=== PATIENT | male | born 1990 | race Caucasian/White ===

== ENCOUNTER 2021-07-09 10:58 | Emergency (ER) | payer MEDICAID, SELFPAY ==
[2021-07-09 11:00] VITALS: BP 133/102; PULSE 128; RESP 18; TEMP 35.8; O2SAT 97; BMI 29.2
--- NOTE | 2021-07-09 11:15 | US_ITS ---
STUDY: SCROTUM ULTRASOUND REASON FOR EXAM: Male, 30 years old. Right testicle pain TECHNIQUE: Ultrasound evaluation of the scrotum was performed with color Doppler and static blackman-scale imaging. COMPARISON: None. FINDINGS: RIGHT TESTICLE INTRATESTICULAR: There is a normal size of the right testicle. The right testicle measures 3.8 cm x 2.9 cm x 3 cm. There is a heterogeneous echotexture. There is increased arterial and increased venous vascularity. There is a 1.9 cm x 1.7 cm heterogeneous solid mass in the medial inferior aspect of the right testicle. The differential diagnosis to consider should include abscess and neoplastic process. EXTRATESTICULAR: The epididymis is enlarged. The epididymis head measures 1.4 cm x 1.9 cm x 2 cm. There is normal vascularity of the epididymis. There is no demonstrated epididymal cystic structure. There is no demonstrated hydrocele. There is no demonstrated varicocele. There is no demonstrated extratesticular mass or cyst. LEFT TESTICLE INTRATESTICULAR: There is a normal size of the left testicle. The left testicle measures 4.1 cm x 2.7 cm x 2.2 cm. There is a homogenous echotexture. There is normal arterial and normal venous vascularity. There is no demonstrated left testicular mass or cyst. EXTRATESTICULAR: The epididymis is normal in size. The epididymis head measures 1.3 cm x 1.6 cm x 0.9 cm. There is normal vascularity of the epididymis. There is a well-defined cystic structure within the epididymis, without internal echoes, consistent with an epididymal cyst. This measures 1.1 cm x 1.1 cm x 0.7 There is no demonstrated hydrocele. There is no demonstrated varicocele. There is no demonstrated extratesticular mass or cyst. US/Testicular with Arterial Flow IMPRESSION: Findings suggestive of epididymitis on the right side with the heterogeneous solid mass in the medial aspect of the right testicle. The differential diagnosis to consider should include epididymal orchitis with possible abscess versus a neoplastic process of the right testicle. Electronically Signed: Douglas Pagan MD at 13:13 EST , Service support ,
--- NOTE | 2021-07-09 11:16 | EX.ED.GUMALE ---
HPI History of Present Illness Chief Complaint: Male Pain/Injury Detail of Chief Complaint: Right testicle pain x1 week Informant: patient Pain Current Severity: 03/11 Narrative Narrative: Patient presents to the emergency department complaint of pain in his right testicle that he said for about a week. Patient states initially the pain started suddenly about a week ago and he kept ice to the area because he thought he might be a hernia and eventually over the next 4 to 5 days his pain improved significantly. Patient started experiencing more discomfort yesterday. Patient complains of pain to the right lower abdomen as well. He denies fever. Has had not had any nausea or vomiting. He denies dysuria. He is never had discomfort like this before. He denies any trauma to the testicle. No history of kidney stones. Currently rates his pain a 6-8 out of 10. Prior similar symptoms: No PFSH PFS Medical History (Updated 07/09/21 @ 15:[address] Soraya Taylor, DO) History of deviated nasal septum Home Medications oxycodone-acetaminophen 1 tab PO Q6H PRN PRN 3 Days #12 tablet 07/09/21 [Rx Last Taken Unknown] sulfamethoxazole-trimethoprim 1 tab PO BID #20 tablet 07/09/21 [Rx Last Taken Unknown] Allergy/AdvReac Type Severity Reaction Status Date / Time No Known Allergies Allergy Verified 07/09/21 10:58 Social History Smoking Status: Current every day smoker tobacco type: cigarettes ROS ROS ED Constitutional Constitutional ED: Reports systems reviewed and no addt'l complaints, except as documented; Denies body ache(s), change in weight or chills Eyes Eyes: Denies acute decrease in peripheral vision, change in vision, double vision or loss of vision ENT ENT ED: Reports none; Denies ear pain, lip swelling, loss taste/smell, neck pain, otalgia or sore throat Cardiovascular Cardiovascular: Reports none; Denies abdominal pain, chest pain with activity, leg edema, lightheadedness, palpitations, rapid heart rate or syncope Respiratory/Chest Respiratory/Chest: Reports none; Denies change in mental status, dry cough, dyspnea, hemoptysis, shortness of breath at rest or shortness of breath with exertion Gastrointestinal Gastrointestinal: Reports none; Denies abdominal pain, change in stool character, diarrhea, hematemesis, hematochezia, melena, rectal bleeding or vomiting Genitourinary Genitourinary ED: Reports none and other Details: Right testicle pain ; Denies abdominal discomfort, anuria, dysuria, genital pain or polyuria Musculoskeletal Musculoskeletal: Reports none; Denies arthralgias, back pain, difficulty walking, extremity pain, muscle weakness or myalgias Integumentary Reports none; Denies abscess or rash Neurologic Neurologic: Reports none; Denies abnormal gait, confusion, focal weakness, frequent falls, headache(s), loss of vision, numbness, paresthesias, radicular pain, vertigo or weakness Psychiatric Psychiatric: Reports systems reviewed and no addt'l complaints, except as documented and none; Denies behavioral changes, confusion, difficulty concentrating, hallucinations, suicidal ideation, tactile hallucinations or visual hallucinations Endocrine Endocrinology: Denies none, cold intolerance, excessive sweating, fatigue or heat intolerance Hematologic/Lymphatic Hematologic/Lymphatic: Reports none; Denies anemia, easy bleeding or easy bruising Allergic/Immunologic Allergic/Immunologic ED: Denies as per HPI, none, lip swelling, mouth swelling, throat swelling, tongue swelling or hives EXAM Physical Exam Const Vital Signs: 07/09/21 11:00 Temperature 96.5 F L Temperature Source Temporal Pulse Rate 128 H Respiratory Rate 18 Blood Pressure 133/102 H Blood Pressure Mean 112 Pulse Ox 97 Oxygen Delivery Method Room Air Positive well nourished and well developed General Appearance ED: well developed and NAD HEENT Reports TM's clear and moist mucous membranes normocephalic and atraumatic; Negative for trauma or tenderness Tympanic Membrane ED: Yes TM's clear Eyes PERRL and EOMs intact bilaterally General Eye ED: Negative for pale conjunctiva or scleral icterus Neck no lymphadenopathy, supple and no JVD General: Negative for tenderness Chest Wall inspection of chest normal and palpation of chest normal Chest: Negative for tenderness Resp normal respiratory effort and clear to auscultation bilaterally Effort and Inspection: Negative for respiratory distress or pain with movement Auscultation: Negative for rhonchi, wheezes or diminished lung sounds Cardio regular rate, regular rhythm, S1 normal heart sound, S2 normal heart sound and no murmurs Peripheral Pulses: pulses 2+ throughout GI normal to inspection, nondistended, normoactive bowel sounds, soft to palpation, non-distended and no masses GI Narrative: Tenderness diffusely to the right lower quadrant with some guarding. No rebound or rigidity noted. No masses palpated. No obvious hernias noted. Narrative: Patient does have swelling to the right testicle and tenderness over the right epididymis. Normal lie of testicle and normal cremasteric reflex. Patient is circumcised and no external lesions noted and no drainage from the urethral meatus noted. Back/Spine no CVA tenderness and no thoracic nor lumbar tenderness Extremity normal to inspection General Extremety ED: Negative for edema General Extremity: Negative for edema Neuro oriented x3, CN's II-XII intact bilaterally, no sensory deficits noted and gait normal Sensorium / Orientation: awake, alert, oriented to person, oriented to place and oriented to time Motor Exam: strength 5/5 throughout and strength abnormal Psych mental status grossly normal Skin no rashes or lesions noted and no wounds MDM MDM MDM Narrative Medical decision making narrative: IV line established on arrival. Patient was medicated with morphine as well as Toradol and Zofran. Patient case was discussed with urology on-call Dr. Logan who recommended antibiotics and outpatient follow-up for concern about testicular mass versus epididymitis with possible abscess. Patient will be given a prescription for Bactrim as well as Percocet for pain. Patient advised to return if worsening pain, fever, vomiting, or condition should worsen anyway. Lab Data Attestation: I reviewed the patient's lab results. Labs: Laboratory Results - last 24 hr 07/09/21 07/09/21 07/09/21 11:57 12:05 12:05 WBC 23.0 H RBC 4.83 Hgb 14.5 Hct 43.0 MCV 89.0 MCH 30.0 MCHC 33.7 RDW Std Deviation 39.2 RDW Coeff of Ivana 12.0 Plt Count 387 MPV 10.3 Immature Gran % (Auto) 0.700 Neut % (Auto) 84.7 H Lymph % (Auto) 6.6 L [place] % (Auto) 7.6 Eos % (Auto) 0.1 Baso % (Auto) 0.3 Absolute Neuts (auto) 19.5 H Absolute Lymphs (auto) 1.51 Nucleated RBC % 0 Sodium 137 Potassium 3.9 Chloride 101 Carbon Dioxide 28.0 Anion Gap 8 BUN 13 Creatinine 1.12 Estim Creat Clear Calc 76.91 Est GFR (MDRD) Af Amer 98 Est GFR (MDRD) Non-Af 81 BUN/Creatinine Ratio 11.6 Glucose 108 H Calcium 9.5 Urine Color Yellow Urine Clarity Sl. Cloudy Urine pH 6.0 Ur Specific [place] 1.020 Urine Protein 30 H Urine Glucose (UA) Normal Urine Ketones 50 H Urine Occult Blood Negative Urine Nitrite Negative Urine Bilirubin Negative Urine Urobilinogen 1 H Ur Leukocyte Esterase 25 H Urine RBC 0 SEEN Urine WBC 0-5 SEEN Ur Squamous Epith Cells 0-5 SEEN Urine Bacteria 0 SEEN Urine Mucus 0 SEEN Radiography Diagnostic Testing: Clinical Impression(s) from Imaging Studies Testicular Ultrasound 07/09/21 11:15 IMPRESSION: Findings suggestive of epididymitis on the right side with the heterogeneous solid mass in the medial aspect of the right testicle. The differential diagnosis to consider should include epididymal orchitis with possible abscess versus a neoplastic process of the right testicle. Electronically Signed: Douglas Pagan MD at 13:13 EST , Service support , Abdomen/Pelvis CT 07/09/21 13:09 IMPRESSION: Heterogeneous appearance of the right testicle. This correlates with the recent ultrasound of the right testicle. Calcified appendicolith. Electronically Signed: Douglas Pagan MD at 14:12 EST , Service support , Discharge Plan Triage Chief Complaint: Male Pain/Injury ED Provider: Soraya Taylor Dx/Rx/DC Orders Clinical Impression: Acute epididymitis, Mass of right testicle Instructions: ED Epididymitis, ED Orchitis Prescriptions: New sulfamethoxazole-trimethoprim [sulfamethoxazole-trimethoprim] 1 TABLET tablet 1 tab PO BID Qty: 20 RF: 0 oxycodone-acetaminophen [oxycodone-acetaminophen] 1 TABLET tablet 1 tab PO Q6H PRN PRN (Reason: Pain) 3 Days Qty: 12 RF: 0 Primary Care Provider: Care Physician,No Primary Referrals: Eagle Logan MD [STAFF PHYSICIAN] - 5-7 Days Care Physician,No Primary [Primary Care Provider] - Activity Restrictions/Additional Instructions: There is a question of a mass in your right testicle and will need further work-up and evaluation by urology to determine if this is related to infection versus a tumor/mass Disposition Disposition: Home, Self Care
[2021-07-09] MEDS: Ondansetron 4 MG/2 ML Vial IV (11:49)
[2021-07-09] MEDS: Ketorolac 30 MG/ML Syringe IV (11:51)
[2021-07-09] MEDS: Morphine 4 MG/ML Syringe IV (11:51)
[2021-07-09 12:07] LABS: Bacteria 0 SEEN /hpf (None Seen); Mucous, Urine 0 SEEN /hpf (<or=2+); Red Blood Cells-Urine 0 SEEN /hpf (0-5)
[2021-07-09 12:12] LABS: Color, Urine Yellow (Yellow); Glucose, Dipstick Normal (Normal); Ketone-Dipstick 50 mg/dl (Negative); Leukocyte Esterase-Dipstick 25 /ul (Negative); Nitrite-Dipstick Negative (Negative); Occult Blood-Urine Negative /ul (Negative); Protein-Dipstick 30 mg/dl (Negative); Urine Bilirubin Dipstick Negative (Negative); Urine Clarity Sl. Cloudy (Clear); Urine Urobilinogen 1 mg/dl (Normal)
[2021-07-09 12:19] LABS: Squamous Epithelial Cells - UA 0-5 SEEN /hpf (0-5); White Blood Cells 0-5 SEEN /hpf (0-5)
[2021-07-09 12:40] LABS: Anion Gap 8 (5-15); BUN 13 mg/dL (7-18); BUN/Creat Ratio 11.6 RATIO (10-20); Calcium,Total 9.5 mg/dL (8.5-10.1); Chloride 101 mmol/L (98-107); Creatinine, Serum 1.12 mg/dL (0.70-1.30); EST Glomerular Filtration Rate 81 mL/min (>60); Est Glom Filt Rate - Afr Amer 98 mL/min (>60); Estimated Creatinine Clearance 76.91 ml/min; Glucose 108 mg/dL (74-106); Potassium 3.9 mmol/L (3.5-5.1); Sodium Level 137 mmol/L (136-145)
[2021-07-09 12:42] LABS: Absolute Lymphocyte Count 1.51 X10^3/uL (0.83-4.51); Absolute Neutrophil Count 19.5 X10^3/uL (2.0-7.7); Basophil# 0.06 X10^3/uL; Basophil% 0.3 % (0-1); Eosinophil# 0.02 X10^3/uL; Eosinophils% 0.1 % (0-5); Hemoglobin 14.5 g/dL (13.0-16.5); Lymphocyte # 1.51 X10^3/ul (0.83-4.51); Lymphocyte % 6.6 % (19-41); Mean Corp Hgb Conc 33.7 g/dL (32-36); Mean Platelet Vol. 10.3 fl (6.2-12.0); Monocyte# 1.74 X10^3/uL; Monocyte% 7.6 % (0-10); NRBC Flagged by Analyzer 0 % (0-5); Neutrophil % 84.7 % (47-70); POSITIVE DIFFERENTIAL YES; Platelet Count 387 K/mm3 (150-450); RBC Distribution Width SD 39.2 fl (35.1-43.9); Red Blood Count 4.83 M/mm3 (4.6-6.2)
[2021-07-09 13:01] LABS: Differential Indicated SCAN CRITERIA MET
--- NOTE | 2021-07-09 13:09 | CT_ITS ---
STUDY: CT ABDOMEN AND PELVIS WITHOUT CONTRAST REASON FOR EXAM: Male, 30 years old. Right testicular pain. RADIATION DOSAGE (If Supplied By Facility): CTDIvol = ( 9.67 ) mGy, DLP = ( 546.93 ) mGycm TECHNIQUE: Transaxial images were obtained from the dome of the diaphragm to the symphysis pubis without oral contrast, and without intravenous contrast. Sagittal and coronal images were reconstructed. Individualized dose optimization techniques were used for this CT. COMPARISON: None. FINDINGS: The visualized lung bases are unremarkable. The visualized portions of the heart are within normal limits. Normal liver. Normal gallbladder and extrahepatic biliary system. Normal spleen. Normal pancreas. Normal bilateral adrenal glands. Normal right kidney. Normal left kidney. Normal visualized stomach. Normal small intestine. Normal colon. There is a calcified appendicolith. Normal abdominal aorta. Normal inferior vena cava. Normal retroperitoneum. Normal urinary bladder. Heterogeneous appearance of the inferior aspect of the right testicle. Tiny calcifications within the prostate. Normal abdominal wall. Normal osseous structures. CT/Abdomen/Pelvis without Cont IMPRESSION: Heterogeneous appearance of the right testicle. This correlates with the recent ultrasound of the right testicle. Calcified appendicolith. Electronically Signed: Douglas Pagan MD at 14:12 EST , Service support ,
--- NOTE | 2021-07-09 13:10 | CM.ED ---
SW Note Referral Source: Case Find Referral Reason: No Primary Care Physician (PCP) SW reviewed chart and noted that patient has no PCP. SW provided patient with list of [facility] and [facility] Physician List for reference. . No other issues or concerns voiced at this time. SW remains available for any additional needs. Plan: Provided patient with PCP information Nara HERNANDEZ
[2021-07-09 15:19] VITALS: BP 112/87; PULSE 120; RESP 18; O2SAT 98
[2021-07-11 10:09] LABS: Pathologist Review Reviewed
== END 2021-07-09 15:23 | disposition home or self-care (01) ==
PROVIDERS: Emergency Provider Emergency Medicine
DX: N45.1 Epididymitis (principal); N50.89 Other specified disorders of the male genital organs; F17.210 Nicotine dependence, cigarettes, uncomplicated
CPT/HCPCS: 74176; 76870; 80048; 81001; 85025; 93976; 96365; 96375; 99283; J7050; A4216; J2405

== ENCOUNTER 2021-07-17 10:07 | Emergency (ER) | payer MEDICAID, SELFPAY ==
[2021-07-17 10:08] VITALS: BP 120/83; PULSE 122; RESP 16; TEMP 36.2; O2SAT 97; BMI 24.7
--- NOTE | 2021-07-17 10:25 | US_ITS ---
STUDY: SCROTUM ULTRASOUND REASON FOR EXAM: Male, 30 years old. Increasing right testicular pain. TECHNIQUE: Ultrasound evaluation of the scrotum was performed with color Doppler and static blackman-scale imaging. COMPARISON: Comparison is made with prior examination of 07/09/2021. FINDINGS: RIGHT TESTICLE INTRATESTICULAR: There is a normal size of the right testicle. The right testicle measures 4.1 cm x 3.1 cm x 2.4 cm. There is a heterogeneous echotexture. There is normal arterial and normal venous vascularity. The previously seen heterogeneous solid mass in the right testicle has become more cystic at this time. It presently measures 1.2 cm x 1.7 cm x 1.3 cm. This may represent possible necrosis of an abscess. EXTRATESTICULAR: The epididymis is normal in size. The epididymis head measures 1.2 cm x 1.8 cm x 1.2 cm. There is increased (hyperemic) vascularity of the epididymis. There is no demonstrated epididymal cystic structure. There is no demonstrated hydrocele. There is no demonstrated varicocele. There is no demonstrated extratesticular mass or cyst. LEFT TESTICLE INTRATESTICULAR: There is a normal size of the left testicle. The left testicle measures 4.2 cm x 2.9 cm x 1.8 cm. There is a homogenous echotexture. There is normal arterial and normal venous vascularity. There is no demonstrated left testicular mass or cyst. EXTRATESTICULAR: The epididymis is normal in size. The epididymis head measures 1.3 cm x 1.7 cm x 1.2 cm. There is normal vascularity of the epididymis. There is a well-defined cystic structure within the epididymis, without internal echoes, consistent with an epididymal cyst. This measures 1.3 cm x 0.9 cm x 0.6 cm. There is no demonstrated hydrocele. There is no demonstrated varicocele. There is no demonstrated extratesticular mass or cyst. US/Testicular with Arterial Flow IMPRESSION: The previously seen solid abnormality in the right testicle has become more cystic at this time. Persistent increased hyperemia of the right epididymis. Electronically Signed: Douglas Pagan MD at 12:36 EST , Service support ,
--- NOTE | 2021-07-17 10:28 | EX.ED.GUMALE ---
HPI History of Present Illness Chief Complaint: Male Pain/Injury Narrative Narrative: Patient presents with his significant other because of increased right testicular pain. They state that he was seen in the emergency department 1 to 1.5 weeks ago. He was diagnosed with a mass in his right testicle. They had ultrasound and CT of the abdomen and pelvis performed. He followed up with Dr. Logan and the patient has been taking Bactrim, but they state that the pain in his right testicle is gotten worse. They were told by urology, that he needed follow-up in approximately 1 week, but they state that he does not take their insurance so they are trying to find a different provider and are on the waiting list at [place]. They are concerned because while he has not had any fevers or chills, the pain in his right testicle has gotten worse, and has not improved at all. This was even after being on antibiotics. Patient states that he finished his last Percocet tablet the other day. [facility] Medical History (Updated 07/17/21 @ 13:52 by Parker Craig MD) Epididymitis History of deviated nasal septum Home Medications sulfamethoxazole-trimethoprim 1 tab PO BID #20 tablet 07/09/21 [Rx Last Taken Unknown] oxycodone-acetaminophen [Percocet] 1 tab PO Q6H PRN 3 Days #12 tab 07/17/21 [Rx Last Taken Unknown] Allergy/AdvReac Type Severity Reaction Status Date / Time No Known Allergies Allergy Verified 07/17/21 10:11 Social History Smoking Status: Current every day smoker tobacco type: cigarettes ROS ROS ED ROS Narrative Constitutional: No fever, no chills. HEENT: No sore throat. No neck pain. No loss of vision. No rhinorrhea. Cardiovascular: No chest pain. No palpitations. No pedal edema. Respiratory: No cough, no shortness of breath. Abdominal: No abdominal pain. No nausea. No vomiting. Genitourinary: No dysuria. No hematuria. Right testicular pain. Radiates to right hip and upward as before. Musculoskeletal: No myalgias. No arthralgias. Neurologic: No headaches. No dizziness. No lightheadedness. Skin: No rash. No change in color. Psychiatric: No depression. No anxiety. EXAM Physical Exam Narrative Exam Narrative: Afebrile. Vital signs noted. HEENT: Normocephalic. Atraumatic. PERRL, EOMI. Neck soft and supple. No point tenderness or step off. Cardiovascular: Regular rate and rhythm. No murmurs, rubs, or gallops appreciated. Respiratory: No tachypnea. Lungs clear to auscultation bilaterally. Gastrointestinal: Abdomen soft, nontender, with normoactive bowel sounds. No rebound or guarding. Neurological: Awake. Alert. Nonfocal, nonlateralizing. Skin: No rash. Normal color. No pallor. Musculoskeletal: No pedal edema. Full range of motion extremities. Genitourinary: Chaperoned examination reveals diffuse tenderness to palpation right testicle, and mild tenderness of the epididymis. No palpable inguinal lymph nodes, no palpable hernia. Const Vital Signs: 07/17/21 10:08 Temperature 97.2 F L Temperature Source Temporal Pulse Rate 122 H Respiratory Rate 16 Blood Pressure 120/83 H Blood Pressure Mean 95 Pulse Ox 97 Oxygen Delivery Method Room Air MDM MDM MDM Narrative Medical decision making narrative: I reviewed the patient's EMR. He had an elevated white count last time. I will repeat his labs and his ultrasound as the ultrasound did show what could have been an abscess versus mass. He was administered morphine for analgesia. He has a normal white count now 10.7, hemoglobin 15.6, platelet count is elevated at 548. He has normal sodium and potassium and his creatinine is normal at 1.2 with a BUN of 10. Lactic acid is also normal at 1.5. Urinalysis shows no evidence of infection. His ultrasound now shows that the previous mass has become more cystic in nature. There is persistent hyperemia of the epididymis. Patient will continue his antibiotics. He was given another prescription for 3 days worth of Percocet. He and his significant other states that they are going to follow-up with a urologist who takes his insurance at [facility] within the next day. He will wear more supportive undergarments. He will finish his antibiotics. I feel he be discharged safely home with follow-up with urology. Return instructions to the emergency department were reviewed. Disposition is discharged home in stable condition. Lab Data Attestation: I reviewed the patient's lab results. Labs: Laboratory Results - last 24 hr 07/17/21 07/17/21 07/17/21 10:40 10:40 10:40 WBC 10.7 RBC 5.13 Hgb 15.6 Hct 44.6 MCV 86.9 MCH 30.4 MCHC 35.0 RDW Std Deviation 38.5 RDW Coeff of Ivana 11.9 Plt Count 548 H MPV 9.1 Immature Gran % (Auto) 0.500 Neut % (Auto) 65.8 Lymph % (Auto) 20.1 [place] % (Auto) 11.3 H Eos % (Auto) 1.6 Baso % (Auto) 0.7 Absolute Neuts (auto) 7.0 Absolute Lymphs (auto) 2.15 Nucleated RBC % 0 Sodium 139 Potassium 4.2 Chloride 103 Carbon Dioxide 29.0 Anion Gap 7 BUN 10 Creatinine 1.20 Estim Creat Clear Calc 86.29 Est GFR (MDRD) Af Amer 90 Est GFR (MDRD) Non-Af 75 BUN/Creatinine Ratio 8.3 L Glucose 108 H Lactic Acid 1.5 Calcium 9.6 Urine Color Urine Clarity Urine pH Ur Specific [place] Urine Protein Urine Glucose (UA) Urine Ketones Urine Occult Blood Urine Nitrite Urine Bilirubin Urine Urobilinogen Ur Leukocyte Esterase Urine RBC Urine WBC Ur Squamous Epith Cells Urine Bacteria Urine Mucus 07/17/21 10:46 WBC RBC Hgb Hct MCV MCH MCHC RDW Std Deviation RDW Coeff of Ivana Plt Count MPV Immature Gran % (Auto) Neut % (Auto) Lymph % (Auto) [place] % (Auto) Eos % (Auto) Baso % (Auto) Absolute Neuts (auto) Absolute Lymphs (auto) Nucleated RBC % Sodium Potassium Chloride Carbon Dioxide Anion Gap BUN Creatinine Estim Creat Clear Calc Est GFR (MDRD) Af Amer Est GFR (MDRD) Non-Af BUN/Creatinine Ratio Glucose Lactic Acid Calcium Urine Color Yellow Urine Clarity Clear Urine pH 6.0 Ur Specific [place] 1.025 Urine Protein 30 H Urine Glucose (UA) Normal Urine Ketones 5 H Urine Occult Blood Negative Urine Nitrite Negative Urine Bilirubin Negative Urine Urobilinogen 1 H Ur Leukocyte Esterase 25 H Urine RBC 0 SEEN Urine WBC 0 SEEN Ur Squamous Epith Cells 0 SEEN Urine Bacteria 0 SEEN Urine Mucus 0 SEEN Radiography Diagnostic Testing: Clinical Impression(s) from Imaging Studies Testicular Ultrasound 07/17/21 10:25 IMPRESSION: The previously seen solid abnormality in the right testicle has become more cystic at this time. Persistent increased hyperemia of the right epididymis. Electronically Signed: Douglas Pagan MD at 12:36 EST , Service support , Discharge Plan Triage Chief Complaint: Male Pain/Injury ED Provider: Parker Craig Dx/Rx/DC Orders Clinical Impression: Testicular pain, right, Testicular cyst, Epididymitis Instructions: Opioid Use Risks, ED Epididymitis, ED Testicular Pain, Unclear Cause Prescriptions: New oxycodone-acetaminophen [Percocet] 5-325 mg tablet 1 tab PO Q6H PRN (Reason: pain) 3 Days Qty: 12 RF: 0 No Action sulfamethoxazole-trimethoprim [sulfamethoxazole-trimethoprim] 1 TABLET tablet 1 tab PO BID Qty: 20 RF: 0 Primary Care Provider: Care Physician,No Primary Referrals: Care Physician,No Primary [Primary Care Provider] - Disposition Disposition: Home, Self Care
[2021-07-17 10:55] LABS: Bacteria 0 SEEN /hpf (None Seen); Mucous, Urine 0 SEEN /hpf (<or=2+); Red Blood Cells-Urine 0 SEEN /hpf (0-5); Squamous Epithelial Cells - UA 0 SEEN /hpf (0-5); White Blood Cells 0 SEEN /hpf (0-5)
[2021-07-17 10:58] LABS: Color, Urine Yellow (Yellow); Glucose, Dipstick Normal (Normal); Ketone-Dipstick 5 mg/dl (Negative); Leukocyte Esterase-Dipstick 25 /ul (Negative); Nitrite-Dipstick Negative (Negative); Occult Blood-Urine Negative /ul (Negative); Protein-Dipstick 30 mg/dl (Negative); Specific Gravity, Urine 1.025 (1.002-1.030); Urine Bilirubin Dipstick Negative (Negative); Urine Clarity Clear (Clear); Urine Urobilinogen 1 mg/dl (Normal)
[2021-07-17 10:58] LABS: Absolute Lymphocyte Count 2.15 X10^3/uL (0.83-4.51); Basophil# 0.08 X10^3/uL; Basophil% 0.7 % (0-1); Eosinophil# 0.17 X10^3/uL; Eosinophils% 1.6 % (0-5); Hematocrit 44.6 % (40-54); Hemoglobin 15.6 g/dL (13.0-16.5); Lymphocyte # 2.15 X10^3/ul (0.83-4.51); Lymphocyte % 20.1 % (19-41); Mean Corpuscular Hgb 30.4 pg (27.0-32.0); Mean Corpuscular Volume 86.9 fL (80-94); Mean Platelet Vol. 9.1 fl (6.2-12.0); Monocyte# 1.21 X10^3/uL; Monocyte% 11.3 % (0-10); NRBC Flagged by Analyzer 0 % (0-5); Neutrophil # 7.04 X10^3/uL (2.7-7.7); Neutrophil % 65.8 % (47-70); Platelet Count 548 K/mm3 (150-450); RBC Distribution Width CV 11.9 % (11.6-14.6); RBC Distribution Width SD 38.5 fl (35.1-43.9); Red Blood Count 5.13 M/mm3 (4.6-6.2); White Blood Count 10.7 K/mm3 (4.4-11.0)
[2021-07-17 11:08] LABS: Anion Gap 7 (5-15); BUN 10 mg/dL (7-18); BUN/Creat Ratio 8.3 RATIO (10-20); Calcium,Total 9.6 mg/dL (8.5-10.1); Chloride 103 mmol/L (98-107); EST Glomerular Filtration Rate 75 mL/min (>60); Est Glom Filt Rate - Afr Amer 90 mL/min (>60); Estimated Creatinine Clearance 86.29 ml/min; Glucose 108 mg/dL (74-106); Potassium 4.2 mmol/L (3.5-5.1); Sodium Level 139 mmol/L (136-145)
[2021-07-17] MEDS: Morphine 4 MG/ML Syringe IV (11:18)
[2021-07-17 11:28] LABS: Lactic Acid 1.5 mmol/L (0.4-1.9)
[2021-07-17 14:18] VITALS: BP 127/90; PULSE 110; RESP 16; O2SAT 100
--- NOTE | 2021-07-17 14:20 | ED.RN ---
REVIEWED D/C INSTRUCTIONS, FOLLOW UP CARE, PRESCRIPTION, AND S/S THAT WOULD WARRANT A RETURN TO THE ED WITH PT. PT VERBALIZED AN UNDERSTANDING AND DENIES FURTHER QUESTIONS FOR THIS RN. PT SKIN P/W/D, RESP EVEN AND UNLABORED, PT A&O X 3, NO DISTRESS NOTED. PT AMBULATED OUT OF ED, GAIT STEADY.
== END 2021-07-17 14:21 | disposition home or self-care (01) ==
PROVIDERS: Emergency Provider Emergency Medicine
DX: N44.2 Benign cyst of testis (principal); N45.1 Epididymitis; F17.210 Nicotine dependence, cigarettes, uncomplicated
CPT/HCPCS: 76870; 80048; 81001; 83605; 85025; 93976; 96374; 99283; A4216

== ENCOUNTER 2024-11-08 20:48 | Emergency (ER) | payer MEDICAID, SELFPAY ==
[2024-11-08 20:48] VITALS: BP 140/105; PULSE 97; RESP 17; TEMP 36.6; O2SAT 95; BMI 32.2
--- NOTE | 2024-11-08 20:56 | EX.ED.DYSGE1 ---
HPI History of Present Illness Chief Complaint: Chest Pain Informant: patient and parent Onset/Context/Timing Onset: Today Context: Gradual Onset Timing: Continuous Quality: Aching, tightness Location: Right chest Worsened by: Laying flat Relieved by: Reclined position Narrative Narrative: Patient presents with chest pain that began today. Patient states that it has been constant throughout the day today. Patient states his breathing is worse when he lays completely flat. Patient states it is better when he is in a reclined position. Patient states his pain is mainly over the right side of his chest. Patient describes it as tightness and aching. Patient admits to a cough and some shortness of breath. Patient denies any nausea or vomiting. Patient denies any diaphoresis. Patient denies any fevers or chills. Patient denies any sputum production. [facility] Medical History (Updated 11/08/24 @ 23:[address] Nick Rodriguez, DO) Epididymitis History of deviated nasal septum Home Medications ?Medication ?Instructions ?Recorded ?Last Taken ?Type clonidine HCl 0.3 mg tablet 0.3 mg PO TID 11/08/24 Unknown History gabapentin 400 mg capsule 400 mg PO TID 11/08/24 Unknown History trazodone 100 mg tablet 150 - 200 mg PO QHS 11/08/24 Unknown History vortioxetine 20 mg tablet 20 mg PO DAILY 11/08/24 Unknown History (Trintellix) Allergy/AdvReac Type Severity Reaction Status Date / Time No Known Allergies Allergy Verified 11/08/24 20:51 Surgical History Hx of unilateral orchiectomy Social History (Updated 11/08/24 @ 21:51 by Nayana Pendleton) household members: significant other current occupational status: employed Smoking Status: Current every day smoker tobacco type: cigarettes ROS ROS ED Constitutional Constitutional ED: Denies chills or fever(s) Eyes Eyes: Denies blurry vision or change in vision ENT ENT ED: Denies rhinorrhea or sore throat Cardiovascular Cardiovascular: Reports chest pain; Denies palpitations Respiratory/Chest Respiratory/Chest: Reports cough and dyspnea; Denies sputum Gastrointestinal Gastrointestinal: Denies nausea or vomiting Genitourinary Genitourinary ED: Denies dysuria or hematuria Musculoskeletal Musculoskeletal: Denies back pain or neck pain Integumentary Denies abscess or rash Neurologic Neurologic: Denies headache(s) or weakness Allergic/Immunologic Allergic/Immunologic ED: Denies mouth swelling or urticaria EXAM Physical Exam Const Vital Signs: 11/08/24 20:48 11/08/24 21:48 11/08/24 21:49 Temperature 97.9 F Temperature Source Temporal Pulse Rate 97 75 Respiratory Rate 17 17 Blood Pressure 140/105 H 136/96 H Blood Pressure Mean 116 109 Pulse Ox 95 97 97 Oxygen Delivery Method Room Air Room Air 11/08/24 22:20 Temperature Temperature Source Pulse Rate 83 Respiratory Rate 23 H Blood Pressure Blood Pressure Mean Pulse Ox Oxygen Delivery Method Positive well nourished and well developed General Appearance ED: well developed and NAD HEENT Reports moist mucous membranes Neck supple and no JVD Chest Wall palpation of chest normal Resp normal respiratory effort Auscultation: diminished lung sounds right Cardio regular rate and regular rhythm GI non-tender and non-distended Palpation: soft Neuro oriented x3, CN's II-XII intact bilaterally and no sensory deficits noted Sensorium / Orientation: alert Motor Exam: strength 5/5 throughout Psych mental status grossly normal MDM MDM MDM Narrative Medical decision making narrative: Differential diagnosis includes cardiac dysrhythmia, cardiac ischemia, pneumonia, pneumothorax, viral upper respiratory infection, electrolyte abnormality, dehydration, and anxiety. EKG will be obtained to assess for cardiac dysrhythmia and cardiac ischemia. Chest x-ray will be obtained to assess for pneumonia and pneumothorax. CBC will be obtained to assess for leukocytosis and anemia. Basic metabolic profile will be obtained to assess for electrolyte abnormality and renal function. High-sensitivity troponin will be obtained to assess for cardiac ischemia. 2-hour repeat high-sensitivity troponin will be obtained to assess for ongoing cardiac ischemia. Lab Data Attestation: I reviewed the patient's lab results. Lab results narrative: CBC was reviewed and was within normal limits. Basic metabolic profile was reviewed and was within normal limits. High-sensitivity troponin was repeated and was less than 6. Labs: Laboratory Results - last 24 hr 11/08/24 21:41 WBC 9.7 RBC 4.62 Hgb 14.2 Hct 41.1 MCV 89.0 MCH 30.7 MCHC 34.5 RDW Std Deviation 38.4 RDW Coeff of Ivana 11.9 Plt Count 324 MPV 9.4 Immature Gran % (Auto) 0.400 Neut % (Auto) 50.4 Lymph % (Auto) 30.3 [place] % (Auto) 13.7 H Eos % (Auto) 4.6 Baso % (Auto) 0.6 Absolute Neuts (auto) 4.9 Absolute Lymphs (auto) 2.95 Nucleated RBC % 0 Sodium 139 Potassium 4.1 Chloride 105 Carbon Dioxide 24.2 Anion Gap 9 BUN 13 Creatinine 1.09 Estim Creat Clear Calc 106.37 Est GFR (MDRD) Non-Af 91 BUN/Creatinine Ratio 11.7 Glucose 93 Calcium 8.7 Troponin T High Sens < 6 Radiography Chest X-Ray - ED: 2 View, Read by ED Physician, Read by Radiologist and No Acute Disease Diagnostic Testing: Clinical Impression(s) from Imaging Studies Chest X-Ray 11/08/24 21:50 IMPRESSION: NO ACUTE FINDINGS. Reading Location: [facility] [place] and lateral chest x-ray was obtained. There are 2 views. On my independent interpretation, lung modi are clear. There is normal cardiac silhouette. Bony thorax is normal. There is no acute process noted. Radiologist also interpreted the x-ray and agrees. EKG Initial EKG: Attestation: I personally reviewed and interpreted this EKG as follows: Interpretation: Sinus Rhythm (100) and No Acute Injury Pattern Comments: EKG was obtained. On my independent interpretation, it showed a normal sinus rhythm with a rate of 100. VT interval, QRS interval, and QTc intervals were all normal. [place] was normal. There are no acute ST or T wave changes. Prior EKG tracings: not available for review Prior: No Prior Treatment and Re-Evaluation :: Patient was given aspirin here. Smoking cessation was discussed. Patient is feeling better on reevaluation. Patient was advised of his findings. Patient did not want to wait for repeat troponin. Patient has a HEART score of 1. Patient was advised that this is low risk for acute cardiac event. Patient was instructed to follow-up with his primary care physician in 5 to 7 days. Patient was instructed to return if worse in any way. Patient understood and was agreeable with the plan. All questions were answered. Discharge Plan Triage Chief Complaint: Chest Pain ED Provider: Nick Rodriguez Dx/Rx/DC Orders Clinical Impression: Chest pain, Tobacco use, Elevated blood pressure reading without diagnosis of hypertension Instructions: ED Chest Pain, Uncertain Cause Prescriptions: No Action clonidine HCl 0.3 mg tablet 0.3 mg PO TID gabapentin 400 mg capsule 400 mg PO TID trazodone 100 mg tablet 150 - 200 mg PO QHS Trintellix 20 mg tablet 20 mg PO DAILY Primary Care Provider: Andrew Kauffman Referrals: Andrew Kauffman MD [Primary Care Provider] - 5-7 Days Care Physician,No Primary [Non-Staff] - Print Language: Turkmen Disposition Disposition: Home, Self Care
--- NOTE | 2024-11-08 21:34 | EKG12_ITS ---
Test Reason : CP Blood Pressure : */* mmHG Vent. Rate : 100 BPM Atrial Rate : 100 BPM P-R Int : 134 ms QRS Dur : 84 ms QT Int : 362 ms P-R-T Axes : 68 75 43 degrees QTcB Int : 466 ms Normal sinus rhythm Normal ECG Confirmed by DAPHNE CUADRA, LOGAN ([id number]), communications editor LIVIER FELIX ([id number]) on 11/09/2024 8:42:16 AM Referred By: TL Confirmed By: LOGAN SERNA MD
[2024-11-08 21:48] VITALS: BP 136/96; PULSE 75; RESP 17; O2SAT 97
[2024-11-08 21:48] LABS: Absolute Lymphocyte Count 2.95 X10^3/uL (0.83-4.51); Absolute Neutrophil Count 4.9 X10^3/uL (2.0-7.7); Basophil# 0.06 X10^3/uL; Basophil% 0.6 % (0-1); Eosinophil# 0.45 X10^3/uL; Eosinophils% 4.6 % (0-5); Hematocrit 41.1 % (40-54); Hemoglobin 14.2 g/dL (13.0-16.5); Lymphocyte # 2.95 X10^3/ul (0.83-4.51); Lymphocyte % 30.3 % (19-41); Mean Corp Hgb Conc 34.5 g/dL (32-36); Mean Corpuscular Hgb 30.7 pg (27.0-32.0); Mean Platelet Vol. 9.4 fl (6.2-12.0); Monocyte# 1.33 X10^3/uL; Monocyte% 13.7 % (0-10); NRBC Flagged by Analyzer 0 % (0-5); Neutrophil % 50.4 % (47-70); Platelet Count 324 K/mm3 (150-450); RBC Distribution Width CV 11.9 % (11.6-14.6); RBC Distribution Width SD 38.4 fl (35.1-43.9); Red Blood Count 4.62 M/mm3 (4.6-6.2); White Blood Count 9.7 K/mm3 (4.4-11.0)
[2024-11-08] MEDS: Aspirin 81 MG TAB.CHEW 324 MG PO (21:48)
[2024-11-08 21:49] VITALS: O2SAT 97
--- NOTE | 2024-11-08 21:50 | RAD_ITS ---
PROCEDURE: CHEST PA AND LATERAL 11/08/2024 REASON FOR EXAM: CHEST PAIN TECHNIQUE: Frontal and lateral views of the chest. COMPARISON: None FINDINGS: Hardware: None Heart: The heart size is normal. Mediastinum: The mediastinal contour is unremarkable. Lungs: No focal consolidation. No pneumothorax. No pleural effusion. Bones: Unremarkable RAD/Chest PA and Lateral IMPRESSION: NO ACUTE FINDINGS. [facility]
[2024-11-08 22:18] LABS: Anion Gap 9 (5-15); BUN 13 mg/dL (4-19); BUN/Creat Ratio 11.7 RATIO (10-20); Calcium,Total 8.7 mg/dL (7.6-11.0); Carbon Dioxide 24.2 mmol/L (21.0-32.0); Chloride 105 mmol/L (98-108); Creatinine, Serum 1.09 mg/dL (0.70-1.20); EST Glomerular Filtration Rate 91 (>60); Estimated Creatinine Clearance 106.37 ml/min (50-250); Glucose 93 mg/dL (70-99); Potassium 4.1 mmol/L (3.3-5.1); Sodium Level 139 mmol/L (133-145); Troponin T High Sensitivity < 6 ng/L (<=22)
[2024-11-08 22:20] VITALS: PULSE 83; RESP 23
[2024-11-08 23:00] VITALS: BP 122/78; PULSE 72; RESP 13; TEMP 36.5; O2SAT 97
== END 2024-11-08 23:08 | disposition home or self-care (01) ==
PROVIDERS: Emergency Provider Emergency Medicine; PCP Family Medicine; Visit Provider Emergency Medicine
DX: R07.89 Other chest pain (principal); R03.0 Elevated blood-pressure reading, without diagnosis of hypertension; F17.210 Nicotine dependence, cigarettes, uncomplicated
CPT/HCPCS: 71046; 80048; 84484; 85025; 93005; 99284; A4216